=== PATIENT | female | born 1990 ===

== ENCOUNTER → 2022-04-30 | Outpatient (CLI) | payer BC ==
[2022-05-02 02:09] LABS: CHLAMYDIA TRACHOMATIS, NAA Positive (Negative)
[2022-05-06 14:07] LABS: HPV 16 Negative (Negative); HPV 18 Negative (Negative)
== END | disposition home or self-care (01) ==
LOC: LAB SHORT 15:47 → LAB 15:47
PROVIDERS: Family Medicine
DX: Z11.3 Encounter for screening for infections with a predominantly sexual mode of transmission (principal); Z12.4 Encounter for screening for malignant neoplasm of cervix
CPT/HCPCS: 87491; 87591

== ENCOUNTER → 2022-05-22 | Outpatient (CLI) | payer BC ==
[2022-05-23 09:17] LABS: Candida species (DNA Probe) Negative (NEGATIVE); G. vaginalis (DNA Probe) Negative (NEGATIVE); T. vaginalis (DNA Probe) Negative (NEGATIVE)
[2022-05-24 02:12] LABS: CHLAMYDIA TRACHOMATIS, NAA Negative (Negative)
== END | disposition home or self-care (01) ==
LOC: LAB 15:00 → LAB SHORT 15:00
PROVIDERS: Family Medicine
DX: N89.8 Other specified noninflammatory disorders of vagina (principal); A74.9 Chlamydial infection, unspecified
CPT/HCPCS: 87480; 87491; 87510; 87591; 87660

== ENCOUNTER → 2022-05-23 | Outpatient (CLI) | payer BC ==
[2022-05-27 20:09] LABS: HSV-1 DNA Negative (Negative); HSV-2 DNA Positive (Negative)
== END | disposition home or self-care (01) ==
LOC: LAB SHORT 11:58 → LAB 11:58
PROVIDERS: Family Medicine
DX: N90.89 Other specified noninflammatory disorders of vulva and perineum (principal)
CPT/HCPCS: 87529

== ENCOUNTER → 2023-03-20 | Outpatient (CLI) | payer BC | END | disposition home or self-care (01) | LOC: LAB 17:57 → LAB SHORT 17:57 | DX: Z34.03 Encounter for supervision of normal first pregnancy, third trimester (principal); Z3A.36 36 weeks gestation of pregnancy | CPT/HCPCS: 87081; 87150 ==

== ENCOUNTER 2023-04-22 19:51 | Inpatient (IN) | payer BC ==
[~2023-04-22] VITALS: Ht 185.4 cm; Wt 145.4 kg
[2023-04-22 20:40] LABS: BASOPHILS ABSOLUTE AUTO 0.06 K/mm3 (0.00-0.23); BASOPHILS PERCENT AUTO 0 % (0-2); EOSINOPHILS ABSOLUTE AUTO 0.16 K/mm3 (0.00-0.68); EOSINOPHILS PERCENT AUTO 1 % (0-6); Hemoglobin 12.9 g/dL (11.5-16.0); IMMATURE GRAN ABSOLUTE AUTO 0.12 K/mm3 (0.00-0.10); IMMATURE GRAN PERCENT AUTO 1 % (0-1); LYMPHOCYTES ABSOLUTE AUTO 3.02 K/mm3 (0.84-5.20); LYMPHOCYTES PERCENT AUTO 21 % (21-46); MONOCYTES ABSOLUTE AUTO 1.35 K/mm3 (0.16-1.47); MONOCYTES PERCENT AUTO 9 % (4-13); Mean Corpuscular HGB 30.9 pg (26.0-34.0); Mean Corpuscular HGB Conc 34.9 g/dL (31.5-36.5); Mean Corpuscular Volume 89 fL (80-100); Mean Platelet Volume 12.5 fL (9.1-12.4); NEUTROPHILS ABSOLUTE AUTO 9.87 K/mm3 (1.96-9.15); NEUTROPHILS PERCENT AUTO 68 % (41-73); Platelet Count 225 K/mm3 (150-400); RDW Standard Deviation 45.1 fL (35.1-46.3); Red Blood Cell Count 4.18 M/mm3 (3.80-5.20); White Blood Cell Count 14.58 K/mm3 (4.00-11.30)
[2023-04-22] MEDS ORDERED: PRENATAL TABLE1 EAC2 PO (20:43)
[2023-04-22 20:56] VITALS: BP 138/84
[2023-04-22] MEDS ORDERED: VALA500 PO (21:07)
[2023-04-22 21:11] VITALS: BP 140/83
[2023-04-22 21:26] VITALS: BP 134/79
[2023-04-22 21:42] VITALS: BP 139/78
[2023-04-22 21:56] VITALS: BP 134/80
[2023-04-23] VITALS (34 sets, daily range): BP systolic 109–149; BP diastolic 55–83
--- NOTE | 2023-04-23 06:39 | NUR ---
QBL IN LABOR AND DELIVERY SUMMARY INNACURATE. DRAPE WAS NOT ABLE TO BE CHANGED DURING DELIVERY, SO THERE IS AMNIOTIC FLUID, TERMINAL MECONIUM, AND WATER FROM CLEANING PT IN DRAPE. IS AWARE OF THIS AND ESTIMATES THAT BLOOD LOSS IS 500ML. BLEEDING HAS BEEN SCANT WITH FIRM UTERUS.
[2023-04-24 00:50] VITALS: BP 107/55
[2023-04-24 05:09] VITALS: BP 107/52
[2023-04-24 06:18] LABS: Hematocrit 30.1 % (33.0-51.0); Hemoglobin 10.3 g/dL (11.5-16.0); Mean Corpuscular HGB 31.2 pg (26.0-34.0); Mean Corpuscular HGB Conc 34.2 g/dL (31.5-36.5); Mean Corpuscular Volume 91 fL (80-100); Mean Platelet Volume 12.3 fL (9.1-12.4); Platelet Count 163 K/mm3 (150-400); RDW Coefficient Variation 14.4 % (11.7-14.2); RDW Standard Deviation 47.8 fL (35.1-46.3); White Blood Cell Count 12.95 K/mm3 (4.00-11.30)
[2023-04-24 08:36] VITALS: BP 132/72
[2023-04-24 11:09] VITALS: BP 117/55
--- NOTE | 2023-04-24 11:30 | NUR ---
ID bands matched w/nb and verification form. Pt denies additional questions/concerns at this time. Pt d/c'd home ambulatory to care of [facility].
== END 2023-04-24 11:30 | disposition home or self-care (01) | DRG 806 ==
LOC: OBS 19:51 → BC 19:57 → OBS 20:11 → BC 20:13
PROVIDERS: ADMIT Family Medicine
PROC: 10E0XZZ Delivery of Products of Conception, External Approach (ICD-10-PCS; principal; 2023-04-23)
PROC: 00HU33Z Insertion of Infusion Device into Spinal Canal, Percutaneous Approach (ICD-10-PCS; 2023-04-23)
PROC: 3E0R3BZ Introduction of Anesthetic Agent into Spinal Canal, Percutaneous Approach (ICD-10-PCS; 2023-04-23)
PROC: 3E0P7VZ Introduction of Hormone into Female Reproductive, Via Natural or Artificial Opening (ICD-10-PCS; 2023-04-23)
PROC: 3E033VJ Introduction of Other Hormone into Peripheral Vein, Percutaneous Approach (ICD-10-PCS; 2023-04-23)
PROC: 0UQMXZZ Repair Vulva, External Approach (ICD-10-PCS; 2023-04-23)
DX: O48.0 Post-term pregnancy (principal); O98.32 Other infections with a predominantly sexual mode of transmission complicating childbirth; Z37.0 Single live birth; Z3A.41 41 weeks gestation of pregnancy; O99.214 Obesity complicating childbirth; A60.00 Herpesviral infection of urogenital system, unspecified; Z67.10 Type A blood, Rh positive; O76 Abnormality in fetal heart rate and rhythm complicating labor and delivery; O70.0 First degree perineal laceration during delivery; Z79.899 Other long term (current) drug therapy
CPT/HCPCS: 36415; 51702; 85025; 85027; 86850; 86900; 86901; 86923; A9270; J1885; J2210; J2590; J3010; J7120